=== PATIENT | female | born 1950 | race Caucasian/White ===

== ENCOUNTER 2017-12-05 07:53 | Inpatient (IN) ==
[~2017-12-05 07:53] MED LIST: DEXAMETHASONE 20 MG/5 ML INJECTION IVP ONE; FAMOTIDINE PB 20 MG/50 ML BAG IV ONE; LIDOCAINE 1% (10mg/ml) 2mL INJ PF SDV ID ONE; METOCLOPRAMIDE 10mg/2ml INJECTION IVP ONE; ONDANSETRON 4 MG/2 ML INJECTION IVP ONE; TRANEXAMIC ACID 1,000 MG in NS 100 ML IV ONE
[2017-12-05] MEDS ORDERED: EPINEPHrine PF 0.25 MG, BUPIVACAINE 0.25% PF 30 ML, KETOROLAC INJ 60 MG in NS 30 ML OPSITE ONE (08:00)
[2017-12-05 08:12] VITALS: BMI 25.0
[2017-12-05] MEDS: LR 1,000 ML IV SCH ×2 (08:40→10:48)
[2017-12-05] MEDS: NOZIN NASAL SWAB NAS SCH ×5 (08:47→21:01)
[2017-12-05] MEDS ORDERED: DEXAMETHASONE 4 MG/ML INJECTION IV ONE (08:52)
[2017-12-05] MEDS ORDERED: BUPIVACAINE 0.75%/DEXTROSE 8.5% SPINAL 2 ML AMPULE IJ ONE (09:58)
[2017-12-05] MEDS ORDERED: MIDAZOLAM 2mg/2ml INJECTION ONE (09:58)
[2017-12-05] MEDS ORDERED: PROPOFOL 500 MG/50 ML VIAL ONE (09:58)
[2017-12-05] MEDS ORDERED: LIDOCAINE 2% (100mg/5mL) 5ml PF SDV ONE (09:59)
[2017-12-05] MEDS ORDERED: CEFAZOLIN 1 G INJECTION IVP ONE (10:00)
[2017-12-05] MEDS ORDERED: VANCOMYCIN 1,000 MG INJECTION IAR ONE (10:04)
[2017-12-05] MEDS ORDERED: SALINE FLUSH 10ml SYRINGE IV PRN (10:12)
[2017-12-05] MEDS ORDERED: ROPIVACAINE 0.5% (5mg/ml) 30ml INJ ONE (10:40)
[2017-12-05] MEDS ORDERED: SALINE FLUSH 10ml SYRINGE ONE (10:55)
[2017-12-05] MEDS ORDERED: EPHEDRINE 50mg/ml INJECTION ONE (10:55)
--- NOTE | 2017-12-05 11:19 | Operative Note ---
- Procedure Preoperative Diagnosis: Left knee primary degenerative joint disease Postoperative Diagnosis: Same as preoperative diagnosis. Surgeon: Felix Adams MD Toolman: Becky Muro Complications: None. Anesthesia: Spinal. Estimated Blood Loss: See Anesthesia Record. Fluids: Please see Anesthesia Record. Description of Procedure: Mrs. Anne and her left knee were identified and marked in the preoperative holding area. She was brought back to the operating suite. Spinal anesthetic was administered and she was placed supine on the operating table. The left lower extremity was prepped and draped in my normal sterile fashion. Timeout was performed. The [employer] robotic arm was used during the surgery. She had a correctable valgus deformity with no flexion contracture. A standard anterior midline incision followed by medial parapatellar arthrotomy was performed. Anterior fat pad and meniscus were removed. The patella was everted and a patella osteotomy was performed leaving 12 mm of bone. She had a large defect in the lateral femoral condyle and lateral tibial plateau. She also had considerable arthritic changes underneath the patella with near complete loss of cartilage. Tibial and femoral arrays and checkpoints were placed both within the original incision. The bone was then registered with the [employer] robot. Osteophytes were removed and gaps were captured both 90 and 0 degrees with correction. The [employer] robotic software was utilized to obtain 17 mm gaps in extension and 18 mm gaps in flexion. The [employer] robotic arm was then used to assist with the bone cuts. Posterior osteophytes and remaining meniscus were removed. Trial components were placed. We used a 3 femur and a 3 tibia with a 9 mm spacer and a 32 patella. She tracked well and was well balanced throughout range of motion. The tibia was stamped at the proper rotation. Trial components fit well and bone quality was adequate so we proceeded with press-fit components. Components were press-fit into place. A final spacer was also placed. The knee was ranged one more time to ensure good stability, balance and patellar tracking. 1 g of vancomycin powder was then placed into the knee joint. The capsulotomy was then closed with #1 Vicryl. I then left my automotive parts counter assistant to close the subcutaneous tissue with 2-0 Vicryl. Running 4-0 Monocryl will be used in the subcuticular layer. Dermabond will be used on the skin followed by sterile dressing. After drapes are removed patient will be taken to recovery room under the care of anesthesia.
[2017-12-05] MEDS ORDERED: NOZIN NASAL SWAB NAS ONE (12:09)
[2017-12-05] MEDS ORDERED: WARFARIN - PHARMACY CONSULT MC ONE (12:09)
[2017-12-05] MEDS ORDERED: DiphenhydrAMINE 50 MG/ML INJECTION IVP PRN (12:09)
[2017-12-05] MEDS ORDERED: LORazepam 1 MG TABLET PO PRN (12:09)
[2017-12-05] MEDS ORDERED: DiphenhydrAMINE 25 MG CAPSULE PO PRN (12:09)
--- NOTE | 2017-12-05 12:17 | Anesthesia Postoperative Note ---
- Date and Time Date: 12/05/17 Time: 12:17 - Status Patient Participated in Evaluation: Patient Participated in Person Vital Signs: Temperature 97.6 F 12/05/17 12:12 Pulse Rate 79 12/05/17 12:10 Respiratory Rate 18 12/05/17 12:10 Blood Pressure 130/60 12/05/17 12:05 Pulse Oximetry 98 12/05/17 12:10 Respiratory Function: Airway Patent Cardiovascular Function: Regular Pulse EKG: Sinus Rhythm Mental Status: Alert and Oriented Pain Intensity: 0 Hydration: IV Infusing Complications During Recover: None Apparent - Follow-Up Instructions Instructions: Per Surgeon
[2017-12-05] MEDS: NS 1,000 ML IV SCH (12:35)
--- NOTE | 2017-12-05 12:48 | XRay Report ---
Indication: postoperative image PROCEDURE: XR knee LT 2V: Encounter: Initial Comparison: October 04, 2017 Findings: Postoperative changes of left total knee replacement are seen. There is expected postoperative subcutaneous gas. No evidence of hardware failure or acute fracture. No retained radiopaque surgical instruments or sponges. Overlying material causing artifact. Impression: New left total knee prosthesis without evidence of immediate complication. .
[2017-12-05] MEDS: Oxycodone *IR* 5 MG TABLET PO PRN ×3 (14:19→20:59)
--- NOTE | 2017-12-05 14:30 | Pharmacy Consult ---
Pharmacy Consult-Warfarin - Consult Information Warfarin protocol: day 1 67 y.o. female post op orthopedic surgery. Warfarin protocol ordered. No mention of past warfarin therapy in H&P. goal INR range= 1.5 to 2.5 Will give Warfarin 4 mg po x1 dose today. Patient also has Lovenox 40 mg sq daily ordered for DVT prophylaxis until INR therapeutic. Pharmacy will monitor and adjust Warfarin as needed. Thank You, Irish Hargrove RP
[2017-12-05] MEDS ORDERED: WARFARIN 4 MG TABLET PO SCH (15:00)
[2017-12-05] MEDS ORDERED: MORPHINE SULFATE 4mg INJECTION IVP PRN (16:37)
[2017-12-05] MEDS: CEFAZOLIN 1 G in NS 50 ML IV SCH (18:12)
[2017-12-05] MEDS: DOCUSATE SODIUM 100 MG CAPSULE PO SCH (21:01)
[2017-12-05] MEDS: ENOXAPARIN 40 MG/0.4 ML INJECTION SQ SCH (21:01)
[2017-12-05] MEDS: SENNOSIDES 8.6 MG TABLET PO SCH (21:01)
[2017-12-06] MEDS: NS 1,000 ML IV SCH ×2 (02:06→14:26)
[2017-12-06] MEDS: CEFAZOLIN 1 G in NS 50 ML IV SCH (02:07)
[2017-12-06] MEDS: NOZIN NASAL SWAB NAS SCH ×4 (05:51→21:08)
--- NOTE | 2017-12-06 08:19 | Orthopedic Progress Note ---
Date: Date: 12/06/17 Time: 08 Subjective/Severity of Illness: Annie is having moderate pain this AM. She received some MS IV overnight. She was walking from the bathroom yesterday when she felt a "pop" in the knee laterally. She thought the knee was slightly valgus in position when this occurred. She is able to bear some weight on this. No other complaints today. Orthopedic Exam Vital signs: Temperature 96.2 F L 12/06/17 07:19 Pulse Rate 86 12/06/17 07:19 Respiratory Rate 16 12/06/17 07:19 Blood Pressure 152/73 H 12/06/17 07:19 Pulse Oximetry 97 12/06/17 07:19 - Constitutional General Appearance: Present: alert, cooperative, mild distress - Respiratory Exam Present: non-labored - Cardiovascular Exam Present: pedal pulses intact - Extremities Exam Present: pulses intact. Absent: calf tenderness Comments: Tender lateral femoral condyle region. Painful ROM but ligaments are intact. Able to hold leg in extension. No extensor mechanism failure. - Dressing Dressing: dry, no drainage - Integumentary Exam Present: pink, warm, dry - Neurological Exam Present: intact to light touch, no deficits - Psychiatric Exam Present: alert, oriented - Labs Result Diagrams: 12/06/17 04:05 12/06/17 04:05 Abnormal lab results 12/06/17 Range/Units 04:05 Glucose 136 H (65-110) MG/DL H & H 12/06/17 Range/Units 04:05 Hgb 12.9 (12-16) GM/DL Coagulation 12/06/17 Range/Units 04:05 INR 1.07 (0.92-1.18) Orthopedic Assessment and Plan (1) Primary osteoarthritis of left knee Status: Acute Assessment and Plan: Current anti-coagulation protocol for VTE prophylaxis. SCD's. Labs look okay. No acute process identified in the knee. Will work with PT and monitor her progress. PT/OT services to improve independent function. Discharge Planning per Case Management. - Anticoagulation Therapy Anticoagulation: Lovenox 40 mg SQ Daily x 30 days from day of surgery Hospital Course Summary Disclaimer: The visit summary below is not to be considered part of the above Progress Note.
[2017-12-06] MEDS: AMLODIPINE 5 MG TABLET PO SCH (08:30)
[2017-12-06] MEDS: POLYETHYL GLYCOL 3350 17gm PACKET PO SCH (09:18)
[2017-12-06] MEDS: DOCUSATE SODIUM 100 MG CAPSULE PO SCH ×2 (09:18→20:18)
[2017-12-06] MEDS: Oxycodone *IR* 5 MG TABLET PO PRN ×2 (09:18→18:12)
[2017-12-06] MEDS: CETIRIZINE 10 MG TABLET PO SCH (09:18)
[2017-12-06] MEDS: ONDANSETRON 4 MG/2 ML INJECTION IVP PRN (10:13)
--- NOTE | 2017-12-06 10:25 | Pharmacy Consult ---
Pharmacy Consult-Warfarin - Laboratory Information 12/06/17 04:05 INR 1.07 - Consult Information Warfarin protocol: day 2 67 y.o. female post op orthopedic surgery. goal INR range= 1.5 to 2.5 date INR dose 12/05 --- 4 mg 12/06 1.07 plan: 4 mg Will give Warfarin 4 mg po x1 dose today. Patient also has Lovenox 40 mg sq daily ordered for DVT prophylaxis until INR therapeutic. Pharmacy will monitor and adjust Warfarin as needed. Thank You, Irish Hargrove [facility]
[2017-12-06] MEDS ORDERED: SENNOSIDES 8.6 MG TABLET PO PRN (11:08)
[2017-12-06] MEDS ORDERED: WARFARIN 4 MG TABLET PO SCH (12:00)
[2017-12-06] MEDS ORDERED: SCOPOLAMINE 1mg/3 days PATCH (Eq. 1.5 Patch) TD SCH (13:45)
--- NOTE | 2017-12-06 14:41 | XRay Report ---
Indication: Pt complained of "a pop" while ambulating yesterday PROCEDURE: XR knee LT 2V: Encounter: Initial Comparison: December 05, 2017 Findings: Left total knee prosthesis appears intact. No acute fracture or subluxation. No evidence of hardware failure. Impression: No acute osseous abnormality. .
[2017-12-06] MEDS: SENNOSIDES 8.6 MG TABLET PO SCH (20:19)
[2017-12-06] MEDS: ENOXAPARIN 40 MG/0.4 ML INJECTION SQ SCH (20:19)
[2017-12-07] MEDS: Oxycodone *IR* 5 MG TABLET PO PRN ×2 (01:42→08:07)
[2017-12-07] MEDS: ONDANSETRON 4 MG/2 ML INJECTION IVP PRN ×2 (01:42→08:10)
[2017-12-07] MEDS: SALINE FLUSH 10ml SYRINGE IV PRN ×3 (01:43→08:12)
[2017-12-07] MEDS: NS 1,000 ML IV SCH ×2 (03:06→15:33)
[2017-12-07] MEDS: NOZIN NASAL SWAB NAS SCH ×3 (05:42→21:46)
--- NOTE | 2017-12-07 07:31 | Pharmacy Consult ---
Pharmacy Consult-Warfarin - Laboratory Information 12/06/17 12/07/17 04:05 03:56 INR 1.07 1.33 H - Consult Information Target INR is 1.5 to 2.5. Warfarin 4mg is ordered today at noon. Will continue to monitor. Thank you.
--- NOTE | 2017-12-07 07:40 | Orthopedic Progress Note ---
Date: Date: 12/07/17 Time: 735 Subjective/Severity of Illness: Annie is laying in bed this AM with her leg elevated. She states ambulation has been very painful. Her narcotic needs have been fairly constant and the pain does not seem to be improving. Today she localizes her worst pain over the lateral femoral condyle. She denies chest pain, shortness of breath or calf pain. She is having some nausea as well which is being addressed with Zofran. A left knee X-ray was ordered yesterday and formally read as negative for fracture. The AP appears to have a cortical irregularity of the lateral femoral condyle. This is only seen in one view, thus questionable at best, but does seem to correlated with her pain. I've discussed this with Dr. Adams and he agrees a CT would be helpful. Orthopedic Exam Vital signs: Temperature 96.2 F L 12/06/17 07:19 Pulse Rate 86 12/06/17 07:19 Respiratory Rate 16 12/06/17 07:19 Blood Pressure 152/73 H 12/06/17 07:19 Pulse Oximetry 97 12/06/17 07:19 - Constitutional General Appearance: Present: alert, cooperative, mild distress - Respiratory Exam Present: non-labored - Cardiovascular Exam Present: pedal pulses intact - Extremities Exam Present: edema (typical post op), pulses intact, tenderness (lateral femoral condyle. Smooth passive motion without large increase in pain (done NWB)). Absent: calf tenderness - Dressing Dressing: dry, no drainage - Integumentary Exam Present: pink, warm, dry - Neurological Exam Present: intact to light touch, no deficits - Psychiatric Exam Present: alert, oriented, normal affect - Labs Result Diagrams: 12/07/17 03:56 12/07/17 03:56 Abnormal lab results 12/07/17 12/07/17 Range/Units 03:56 03:56 INR 1.33 H (0.92-1.18) Glucose 119 H (65-110) MG/DL H & H 12/06/17 12/07/17 Range/Units 04:05 03:56 Hgb 12.9 12.1 (12-16) GM/DL Coagulation 12/06/17 12/07/17 Range/Units 04:05 03:56 INR 1.07 1.33 H (0.92-1.18) Orthopedic Assessment and Plan (1) Primary osteoarthritis of left knee Status: Acute Assessment and Plan: Current anti-coagulation protocol for VTE prophylaxis. SCD's. Labs look okay. I will hold her PT and order a CT scan to further evaluate for a fracture. Discharge Planning per Case Management. Hospital Course Summary Disclaimer: The visit summary below is not to be considered part of the above Progress Note.
--- NOTE | 2017-12-07 09:09 | CT Scan Report ---
Indication: lateral femoral condyle pain PROCEDURE: CT knee LT wo con: Encounter: Initial Comparison: November 06, 2017 and radiographs dated December 06, 2017 Technique: Axial CT images were performed through the left knee without intravenous contrast. Coronal and sagittal two-dimensional reformats. Automated Exposure Control and Iterative Reconstruction dose reducing techniques were utilized. Findings: Metallic streak artifact from the total knee prosthesis. No evidence of acute fracture. No evidence of hardware failure. Residual postoperative subcutaneous gas with a moderate sized joint effusion. Impression: No evidence of acute fracture. .
[2017-12-07] MEDS: DOCUSATE SODIUM 100 MG CAPSULE PO SCH ×2 (09:41→21:47)
[2017-12-07] MEDS: AMLODIPINE 5 MG TABLET PO SCH (09:41)
[2017-12-07] MEDS: POLYETHYL GLYCOL 3350 17gm PACKET PO SCH (09:41)
[2017-12-07] MEDS: CETIRIZINE 10 MG TABLET PO SCH (09:41)
[2017-12-07] MEDS ORDERED: WARFARIN 4 MG TABLET PO SCH (12:00)
[2017-12-07] MEDS: TRAMADOL 50 MG TABLET PO PRN ×3 (12:22→21:46)
--- NOTE | 2017-12-07 14:46 | Orthopedic Progress Note ---
Date: Date: 12/07/17 Time: 1443 Subjective/Severity of Illness: Annie is reporting her pain as a 2-3 at rest but up to a 7 with activity. The knee is very painful laterally and there was concern for a possible fx but CT scan was negative. She has been up several times and is bearing wt on the leg. Tramadol is causing less nausea and helps with the pain. Orthopedic Exam Vital signs: Temperature 96.2 F L 12/06/17 07:19 Pulse Rate 86 12/06/17 07:19 Respiratory Rate 16 12/06/17 07:19 Blood Pressure 152/73 H 12/06/17 07:19 Pulse Oximetry 97 12/06/17 07:19 - Constitutional General Appearance: Present: alert, cooperative, mild distress - Respiratory Exam Present: non-labored - Cardiovascular Exam Present: pedal pulses intact - Extremities Exam Present: edema (typical post op), pulses intact, tenderness (lateral femoral condyle. Smooth passive motion without large increase in pain (done NWB)). Absent: calf tenderness - Dressing Dressing: dry, no drainage - Integumentary Exam Present: pink, warm, dry - Neurological Exam Present: intact to light touch, no deficits - Psychiatric Exam Present: alert, oriented, normal affect - Labs Result Diagrams: 12/07/17 03:56 12/07/17 03:56 Abnormal lab results 12/07/17 12/07/17 Range/Units 03:56 03:56 INR 1.33 H (0.92-1.18) Glucose 119 H (65-110) MG/DL H & H 12/06/17 12/07/17 Range/Units 04:05 03:56 Hgb 12.9 12.1 (12-16) GM/DL Coagulation 12/06/17 12/07/17 Range/Units 04:05 03:56 INR 1.07 1.33 H (0.92-1.18) Orthopedic Assessment and Plan (1) Primary osteoarthritis of left knee Status: Acute Assessment and Plan: Current anti-coagulation protocol for VTE prophylaxis. SCD's. Labs look okay. Continue PT / OT. If she is not better tomorrow we will look into discharge placement options. Discharge Planning per Case Management. - Anticoagulation Therapy Anticoagulation: Coumadin therapy with Lovenox bridge x30 days Hospital Course Summary Disclaimer: The visit summary below is not to be considered part of the above Progress Note.
[2017-12-07] MEDS ORDERED: BISACODYL 10 MG SUPPOSITORY RECTALLY SCH (20:00)
[2017-12-07] MEDS: SENNOSIDES 8.6 MG TABLET PO SCH (21:47)
[2017-12-07] MEDS: ENOXAPARIN 40 MG/0.4 ML INJECTION SQ SCH (21:47)
[2017-12-08] MEDS: TRAMADOL 50 MG TABLET PO PRN (05:12)
[2017-12-08] MEDS: SALINE FLUSH 10ml SYRINGE IV PRN (05:14)
[2017-12-08] MEDS: NOZIN NASAL SWAB NAS SCH ×2 (05:14→14:33)
[2017-12-08] MEDS: NS 1,000 ML IV SCH (05:15)
[2017-12-08 07:17] VITALS: O2SAT 97
--- NOTE | 2017-12-08 07:56 | Pharmacy Consult ---
Pharmacy Consult-Warfarin - Laboratory Information 12/06/17 12/07/17 12/08/17 04:05 03:56 04:10 INR 1.07 1.33 H 1.67 H - Consult Information COUMADIN CONSULT (Recurring): 67 yr old female admitted for a Left Total Knee. Patient on warfarin post orthopedic surgery. INR goal is 1.5-2.5. Pt is also on Lovenox until INR is therapeutic. Date INR Dose 12/05/17 --- 4 mg (initial dose) 12/06/17 1.07 4 mg 12/07/17 1.33 4 mg 12/08/17 1.67 Will give 4 mg Thank you. Daysi Romero, PharmD
[2017-12-08] MEDS: DOCUSATE SODIUM 100 MG CAPSULE PO SCH (08:47)
[2017-12-08] MEDS: CETIRIZINE 10 MG TABLET PO SCH (08:47)
[2017-12-08] MEDS: POLYETHYL GLYCOL 3350 17gm PACKET PO SCH (08:47)
[2017-12-08] MEDS: AMLODIPINE 5 MG TABLET PO SCH (08:47)
--- NOTE | 2017-12-08 09:53 | Orthopedic Progress Note ---
Date: Date: 12/08/17 Time: 947 Subjective/Severity of Illness: Annie is sitting up in her chair this morning. She states overall her pain has gradually improved from yesterday. Pain 0-1 at rest, 7 with activity. With PT/ OT she does not qualify for IRU. States nausea has completely resolved with switching to Tramadol. Appetite has gradually improved. Dizziness and lightheadedness has completely resolved as well. Denies chest pain, shortness of breathe, nausea, vomiting. Orthopedic Exam Vital signs: Temperature 96.2 F L 12/06/17 07:19 Pulse Rate 86 12/06/17 07:19 Respiratory Rate 16 12/06/17 07:19 Blood Pressure 152/73 H 12/06/17 07:19 Pulse Oximetry 97 12/06/17 07:19 - Constitutional General Appearance: Present: alert, orientated x3, cooperative - Respiratory Exam Present: CTA bilaterally, non-labored - Cardiovascular Exam Present: Regular Rate/Rhythm, pedal pulses intact - Extremities Exam Present: edema (typical post op), pulses intact, tenderness (mild tenderness, lateral femoral condyle. ). Absent: calf tenderness - Dressing Dressing: dry, intact, no drainage - Integumentary Exam Present: pink, warm, dry, intact - Neurological Exam Present: intact to light touch, no deficits - Psychiatric Exam Present: alert, oriented, normal affect - Labs Result Diagrams: 12/07/17 03:56 12/07/17 03:56 Abnormal lab results 12/08/17 Range/Units 04:10 INR 1.67 H (0.92-1.18) H & H 12/06/17 12/07/17 Range/Units 04:05 03:56 Hgb 12.9 12.1 (12-16) GM/DL Coagulation 12/06/17 12/07/17 12/08/17 Range/Units 04:05 03:56 04:10 INR 1.07 1.33 H 1.67 H (0.92-1.18) Orthopedic Assessment and Plan (1) Primary osteoarthritis of left knee Status: Acute Assessment and Plan: Current anti-coagulation protocol with bridge from Lovenox to Coumadin, and SCDs for VTE prophylaxis. INR 1.67 Continue PT / OT. Patient does not qualify for IRU, has been doing well with PT/OT and safe for discharge. Discussed with case management will consider skilled vs discharge home today. Discharge Planning per Case Management. - Anticoagulation Therapy Anticoagulation: Coumadin therapy with Lovenox bridge x30 days Hospital Course Summary Disclaimer: The visit summary below is not to be considered part of the above Progress Note.
[2017-12-08 11:24] VITALS: BP 129/66; PULSE 83; RESP 14; TEMP 96.5
[2017-12-08] MEDS ORDERED: WARFARIN 4 MG TABLET PO SCH (12:00)
--- NOTE | 2017-12-08 13:36 | Discharge Summary ---
Orthopedic Discharge Info Date of admission: 12/06/17 14:26 Anticipated date of discharge: 12/08/17 Primary care physician: Holly Guerrero MD Attending Physician: Kit Adams MD Consults: 12/05/17 08:03 Consult to Anesthesiology [CONS] Routine Reason For Exam: Preoperative Assessment 12/05/17 12:09 Case Management Consult [CONS] Routine Reason For Exam: Discharge Planning DME-Walker [CONS] Routine Height: 5 ft 6 in Weight: 70.2 kg Total Joint Outpatient Therapy [CONS] Routine Comment: Remove dressing in 2 weeks 12/07/17 Inpatient Rehab Screening [CONS] Routine Screen requested by:: Physician - Discharge Diagnosis (1) Primary osteoarthritis of left knee Status: Acute - Laboratory Result Diagrams: 12/07/17 03:56 12/07/17 03:56 Laboratory: Abnormal lab results 12/08/17 Range/Units 04:10 INR 1.67 H (0.92-1.18) H & H 12/06/17 12/07/17 Range/Units 04:05 03:56 Hgb 12.9 12.1 (12-16) GM/DL Coagulation 12/06/17 12/07/17 12/08/17 Range/Units 04:05 03:56 04:10 INR 1.07 1.33 H 1.67 H (0.92-1.18) Orthopedic Discharge HPI - HPI Comments This patient was admitted for elective surgical tx of end stage degenerative joint disease that failed to respond to conservative treatment. Further details of this is found in the admission H&P. Orthopedic Hospital Course Hospital course: 12/08/17 13:34 After appropriate preoperative clearance and signing of operative consent, the patient was given IV antibiotics, according to orthopedic protocol. The patient was taken to the operating room and underwent elective left knee arthroplasty. Following surgery, antibiotics were discontinued less than 24 hours according to joint protocol. Appropriate anticoagulants were initiated with bridge from lovenox to coumadin and SCDs added for DVT prevention. The dressing was clean, dry, and intact. Pain control was obtained via multimodal approach. Bowel motivation addressed with scheduled and PRN medications. Early mobilization was initiated through PT services. Evening after surgery patient heard "pop" in left knee. xray was ordered, with questionable area on left lateral condyle. CT scan negative for fracture. Discharge arrangements made by a collaborative effort between the patient and Case Management. Follow-up is scheduled in 2-3 weeks. Discharge instructions given by orthopedic providers and nursing staff at discharge. Discharge condition stable and good. Care extended to > 2 midnight stays?: Yes Discharge Plan - Med Rec/Dispo Referrals/Follow Up: Kit Adams MD [Physician] - 12/27/17 9:45 am Jeet Instructions: [facility] Postop Instructions Additional Instructions: [facility] ON MondayDECEMBER 11 AT 8:00 FOR PHYSICAL THERAPY EVAL WITH FLORINDA. PHONE [phone] [facility] TWICE A WEEK (MONDAYS AND THURSDAYS) FOR INR LAB DRAW FOR FOUR WEEKS BEGINNING MondayDECEMBER 11. PHONE [phone] [facility] COST IS $40.56 Prescriptions: New Docusate Sodium [Colace] 100 mg PO BID capsule PEG 3350 17gm PACKET [Miralax] 17 gm PO DAILY packet Sennosides [Senna Lax] 17.2 mg PO DAILY PRN tablet PRN Reason: Constipation Tramadol [Ultram] 50 - 100 mg PO Q4H PRN #60 tab PRN Reason: Pain Warfarin Sodium [Coumadin] 4 mg PO DAILY #3 tab Continue Ergocalciferol (Vitamin D2) [Vitamin D2] 50,000 unit PO 2XW Zyrtec (Cetirizine) 10 mg capsule 10 mg PO DAILY cap Norvasc (amlodipine) 5 mg tablet 5 mg PO DAILY No Action multivitamin,tx-minerals capsule 1 cap PO DAILY - Disposition 01 Discharged Home, Self-Care - Dismissal Complete Discharge Instructions are:: Complete
[2017-12-08] MEDS: ENOXAPARIN 40 MG/0.4 ML INJECTION SQ SCH (14:33)
[2017-12-09] MEDS ORDERED: SCOPOLAMINE PATCH REMOVAL TD SCH (13:45)
== END 2017-12-08 14:55 | disposition home or self-care (01) | DRG 470 ==
LOC: SUR 07:53 → NMC.PERIOP 07:56 → SRG 14:12
PROVIDERS: ADMIT Orthopaedic Surgery; ATTEND Orthopaedic Surgery